=== PATIENT | female | born 1935 | race Caucasian/White ===

== ENCOUNTER 2021-07-04 18:17 | Inpatient (IN) | payer MEDICARE, BC ==
[~2021-07-04] VITALS: Ht 167.6 cm; Wt 80.7 kg
[2021-07-04 19:46] LABS: ABSOLUTE LYMPHOCYTES 0.8 thou/uL (0.8-5.3); ABSOLUTE MONOCYTES 0.2 thou/uL (0.0-1.2); BASOPHILS 0.5 %; EOSINOPHILS 0.4 %; HEMATOCRIT 34.7 % (37.0-47.0); HEMOGLOBIN 11.6 gm/dL (12.0-15.0); LYMPHOCYTES 15.7 %; MCH 29.6 pg (26.0-34.0); MCHC 33.4 g/dL (28.0-37.0); MCV 88.6 fL (80.0-100.0); MONOCYTES 3.8 %; NUCLEATED RBCS 0 /100WBC; PLATELET COUNT* 117 thou/uL (150-400); POLYS 79.6 %; RBC 3.91 mil/uL (4.20-5.00); RDW-CV 14.2 % (10.5-14.5)
[2021-07-04 19:52] LABS: INFLUENZA A ANTIGEN Negative (Negative); INFLUENZA B ANTIGEN Negative (Negative)
[2021-07-04 19:59] LABS: CALCIUM 7.8 mg/dL (8.5-10.1); POTASSIUM 3.5 mmol/L (3.5-5.1)
[2021-07-04 20:02] LABS: ALBUMIN 2.7 g/dL (3.4-5.0); TOTAL BILIRUBIN 0.3 mg/dL (<0.1-1.0)
[2021-07-04] MEDS ORDERED: LEVEMIR100 UNIT/1 SUBQ (21:03)
[2021-07-04] MEDS ORDERED: KAPSPARGO SPRIN25 MG PO (21:03)
[2021-07-04] MEDS ORDERED: ASA81BEC PO (21:04)
[2021-07-04] MEDS ORDERED: BUMETANIDE 1 MG1 M1 PO (21:04)
[2021-07-04] MEDS ORDERED: LEVO-T100 MCG PO (21:04)
[2021-07-04 22:31] VITALS: BP 166/77
[2021-07-04 22:53] LABS: URINE BILIRUBIN NEGATIVE (Negative); URINE BLOOD 3+ (Negative); URINE CLARITY CLEAR; URINE COLOR YELLOW; URINE GLUCOSE-RANDOM NEGATIVE (Negative); URINE KETONES NEGATIVE (Negative); URINE LEUKOCYTES-REFLEX NEGATIVE (Negative); URINE NITRITE-REFLEX NEGATIVE (Negative); URINE PROTEIN 1+ (Negative); URINE UROBILINOGEN 0.2 E.U./dl (0.2-1.0)
[2021-07-04 23:06] LABS: BACTERIA-REFLEX 1-9 Few /HPF (None Seen); CASTS None Seen /LPF (None Seen); CRYSTALS None Seen /LPF (None Seen); MUCUS 0-3 Light strn/LPF (None Seen); SQUAMOUS 4-10 Moderate /LPF (0-3); URINE RBC 3-10 Few /HPF (0-2); URINE WBC-REFLEX 0-5 Rare /HPF (0-5)
[2021-07-05] VITALS (8 sets, daily range): BP systolic 142–181; BP diastolic 69–76
--- NOTE | 2021-07-05 08:50 | EKG ---
[place] [address] ELECTROCARDIOGRAM REPORT Name: MARK KALEE MALDONADO Room: [place] [address] ADM IN [facility]#: [id number] Admission: 07/04/21 Attend Phys: Davis Chung, Discharge: Date of : 39 Date of Service: 07/04/21 1845 Report #: [id number] THIS REPORT FOR: //name// [facility] ED Test Date: 2021-07-04 Test Time: 18:45:42 Pat Name: KALEE MALDONADO Department: Room: [facility] Gender: F Legal Operations Manager: MENDOZA : 1935 Requested By: Salvador Vega Order Number: [id number] MD: Erwin Peguero Measurements Intervals [place] Rate: 80 P: NC: 228 QRS: -51 QRSD: 115 T: 80 QT: 425 QTc: 491 Interpretive Statements A-V dual-paced rhythm with some inhibition No further analysis attempted due to paced rhythm No previous ECG available for comparison Electronically Signed On 07-05-2021 8:50:05 CANE PILER by Erwin Peguero [email or web address] <ELECTRONICALLY SIGNED> By: Erwin Peguero MD, [facility] 07/05/21 0850 1845 1845 Erwin Peguero MD, [facility] /EPI
[2021-07-05 14:24] LABS: BE -5.4 mmol/L (-2 to +3); PCO2 41.4 mmHg (35.0-45.0); pH 7.312 (7.340-7.450)
[2021-07-05 14:29] LABS: HEMATOCRIT 38.6 % (37.0-47.0); HEMOGLOBIN 12.9 gm/dL (12.0-15.0); MCHC 33.5 g/dL (28.0-37.0); MCV 89.3 fL (80.0-100.0); MPV 8.4 fl. (7.2-11.1); NUCLEATED RBCS 0 /100WBC; PLATELET COUNT* 163 thou/uL (150-400); RBC 4.32 mil/uL (4.20-5.00); RDW-CV 14.5 % (10.5-14.5); WBC 5.1 thou/uL (4.0-11.0)
[2021-07-05 14:29] LABS: PO2 55.3 mmHg (75.0-100.0)
[2021-07-05 14:42] LABS: PROTIME 10.5 Seconds (9.20-11.50)
[2021-07-05 14:54] LABS: ABSOLUTE LYMPHOCYTES 0.7 thou/uL (0.8-5.3); ABSOLUTE MONOCYTES 0.2 thou/uL (0.0-1.2); ABSOLUTE NEUTROPHILS 4.3 thou/uL (1.6-8.1); PLATELET ESTIMATE ADEQUATE
[2021-07-05 14:59] LABS: ALBUMIN 2.5 g/dL (3.4-5.0); CALCIUM 7.6 mg/dL (8.5-10.1); CREATININE 2.9 mg/dL (0.6-1.3); MAGNESIUM 1.7 mg/dL (1.8-2.4); PHOSPHORUS* 5.4 mg/dL (2.5-4.9); POTASSIUM 3.6 mmol/L (3.5-5.1); TOTAL BILIRUBIN 0.3 mg/dL (<0.1-1.0); TOTAL PROTEIN 7.1 g/dL (6.4-8.2)
[2021-07-05 15:35] LABS: ESR (SEDRATE) 50 mm/hr (0-30)
[2021-07-05 20:23] LABS: URINE CHLORIDE-RANDOM* 25 mmol/L; URINE POTASSIUM-RANDOM 27.7 mmol/L
[2021-07-05 20:53] LABS: BE -3.6 mmol/L (-2 to +3); PCO2 37.8 mmHg (35.0-45.0); PO2 77.7 mmHg (75.0-100.0); pH 7.367 (7.340-7.450)
[2021-07-06] VITALS (20 sets, daily range): BP systolic 127–173; BP diastolic 50–81
[2021-07-06 04:00] LABS: HEMATOCRIT 35.2 % (37.0-47.0); HEMOGLOBIN 11.8 gm/dL (12.0-15.0); MCH 29.5 pg (26.0-34.0); MCHC 33.4 g/dL (28.0-37.0); MCV 88.2 fL (80.0-100.0); MPV 8.2 fl. (7.2-11.1); RBC 3.99 mil/uL (4.20-5.00); RDW-CV 14.4 % (10.5-14.5); WBC 5.2 thou/uL (4.0-11.0)
[2021-07-06 04:14] LABS: CALCIUM 7.8 mg/dL (8.5-10.1); CREATININE 2.5 mg/dL (0.6-1.3); POTASSIUM 3.6 mmol/L (3.5-5.1)
[2021-07-06] MEDS ORDERED: GABAPENTIN 100100 MG PO (05:02)
--- NOTE | 2021-07-06 12:05 | 2DMMODE ---
[place] [address] 2 D/M-MODE ECHOCARDIOGRAM Name: KALEE BARAHONA Room: 003[facility] IN [facility]#: [id number] Admission: 07/04/21 Attend Phys: Davis Chung, Discharge: Date of : 39 Date of Service: 07/06/21 1204 Report #: [id number] THIS REPORT FOR: cc: Chantale Castillo MD, Pamela MD Liston, Michael J. MD [facility] ~ APPROVED REPORT Study performed: 07/06/2021 09:32:40 EXAM: Comprehensive 2D, Doppler, and color-flow Echocardiogram Patient Location: In-Patient Room #: 003 Status: routine BSA: 1.89 HR: 89 bpm BP: 167/81 mmHg Rhythm: NSR Other Information Study Quality: Good Indications Congestive Heart Failure 2D Dimensions IVSd: 13.08 (7-11mm) LVOT Diam: 18.97 (18-24mm) LVDd: 41.01 mm PWd: 12.33 (7-11mm) Ascending Ao: 28.38 (22-36mm) LVDs: 27.44 (25-40mm) Aortic Root: 21.95 mm Volumes Left Atrial Volume (Systole) LA ESV Index: 27.50 mL/m2 Aortic Valve AoV Peak Anthony.: 1.77 m/s AO Peak Gr.: 12.53 mmHg LVOT Max P.41 mmHg AO Mean Gr.: 6.18 mmHg LVOT Mean P.15 mmHg LVOT Max V: 0.78 m/s AO V2 VTI: 35.52 cm LVOT Mean V: 0.49 m/s ETELVINA (VTI): 1.31 cm2 LVOT V1 VTI: 16.47 [place] [address] 2 D/M-MODE ECHOCARDIOGRAM Name: KALEE BARAHONA Room: [address] IN ..#: [id number] Admission: 07/04/21 Attend Phys: Davis Chung, Discharge: Date of : 39 Date of Service: 07/06/21 1204 Report #: [id number] Mitral Valve E/A Ratio: 1.33 MV Decel. Time: 187.51 ms MV E Max Anthony.: 1.16 m/s MV PHT: 54.38 ms MVA (PHT): 4.05 cm2 TDI E/Lateral E': 11.60 E/Medial E': 12.89 Medial E' Anthony.: 0.09 m/s Lateral E' Anthony.: 0.10 m/s Pulmonary Valve PV Peak Anthony.: 0.88 m/s PV Peak Gr.: 3.10 mmHg Tricuspid Valve RAP Estimate: 5.00 mmHg TR Peak Gr.: 30.25 mmHg RVSP: 35.00 mmHg PA Pressure: 35.00 mmHg Left Ventricle The left ventricle is normal size. There is normal LV segmental wall motion. Mild concentric left ventricular hypertrophy. Left ventricular systolic function is normal. LVEF is 60-65%. Transmitral Doppler flow pattern suggests restrictive physiology. Right Ventricle The right ventricle is normal size. The right ventricular systolic function is normal. Pacemaker lead is present in the right ventricle. Atria The left atrium size is normal. The right atrium size is normal. Aortic Valve Prosthetic aortic valve visualized. No aortic regurgitation is present. There is no aortic valvular stenosis. Mitral Valve There is mitral annular calcification. Mild mitral regurgitation. No evidence of mitral valve stenosis. Tricuspid Valve The tricuspid valve is normal in structure. Trace tricuspid regurgitation. [place] [address] 2 D/M-MODE ECHOCARDIOGRAM Name: KALEE BARAHONA Room: [address] IN [facility]#: [id number] Admission: 07/04/21 Attend Phys: Davis Chung, Discharge: Date of : 39 Date of Service: 07/06/21 1204 Report #: [id number] Pulmonic Valve The pulmonary valve is normal in structure. Trace pulmonic regurgitation. Great Vessels The aortic root is normal in size. IVC is normal in size and collapses >50% with inspiration. Pericardium There is no pericardial effusion. <Conclusion> The left ventricle is normal size. Mild concentric left ventricular hypertrophy. Left ventricular systolic function is normal. LVEF is 60-65%. Transmitral Doppler flow pattern suggests restrictive physiology. Pacemaker lead is present in the right ventricle. Prosthetic aortic valve visualized. No aortic regurgitation is present. There is no aortic valvular stenosis. There is mitral annular calcification. Mild mitral regurgitation. Trace tricuspid regurgitation. Mild pulmonary hypertension. IVC is normal in size and collapses >50% with inspiration. <ELECTRONICALLY SIGNED> By: Cash Rae MD, FACC 07/06/21 1204 03 03 Cash Rae MD, FACC /INF
[2021-07-06 13:43] LABS: URINE BILIRUBIN NEGATIVE (Negative); URINE BLOOD TRACE (Negative); URINE CLARITY CLEAR; URINE COLOR YELLOW; URINE GLUCOSE-RANDOM NEGATIVE (Negative); URINE KETONES NEGATIVE (Negative); URINE LEUKOCYTES NEGATIVE (Negative); URINE NITRITE NEGATIVE (Negative); URINE PROTEIN TRACE (Negative); URINE UROBILINOGEN 0.2 E.U./dl (0.2-1.0)
[2021-07-06] MEDS ORDERED: LASIX 40 MG TAB40 MG PO (15:26)
[2021-07-06] MEDS ORDERED: MELATONIN10 M3 PO (15:27)
[2021-07-06] MEDS ORDERED: MINERAL OIL HEAV1 ML PO (15:29)
[2021-07-06] MEDS ORDERED: VITAMIN D3 COM1 EACH PO (15:30)
[2021-07-06] MEDS ORDERED: ZINC30 MG PO (15:37)
--- NOTE | 2021-07-06 17:29 | CON ---
[address] [address] CONSULTATION Name: MARK MALDONADOKALEE Loan Room: [address] IN M.R.#: [id number] Admission: 07/04/21 Attend Phys: Davis Chung MD Discharge: Date of : 37 Report #: [id number] THIS REPORT FOR: cc: Chantale Castillo MD, Pamela MD Pervez,Tomi SNOW ~ DATE OF CONSULTATION: 07/05/2021 REQUESTING PHYSICIAN: Consult has been requested by Dr. Neal. INDICATION FOR CONSULTATION: Acute hypoxemic respiratory failure secondary to COVID-19. HISTORY OF PRESENT ILLNESS: This is an 85-year-old female with past medical history as mentioned below. This does include a history of diabetes as well as hypertension. The patient is also status post CABG. I am not aware of the patient's baseline creatinine. The patient is reported to have no history of smoking. The patient is unvaccinated for COVID-19, has now presented with acute onset shortness of breath as well as a cough. The patient has not had much sputum production. On initial presentation, the patient was saturating only 70% on room air. Oxygen has been gradually escalated with 100% FiO2 and 50 liters of flow. The patient till recently was maintaining O2 saturation; however, the patient herself removed heated high-flow nasal cannula. This was replaced by the staff. Her O2 saturation could then not be increased above 85%. The patient also is tachypneic with respiratory rate up to 30. The patient has therefore just been placed on a BiPAP with 100% FiO2. She still is tachypneic with respiratory rate around 29-30, but her O2 saturation is coming up to the high 90s. She is in acute renal failure. Creatinine is 2.9-3. Blood pressure, however, is elevated. There is not much swelling of lower extremities. There is no calf pain. The patient does appear to be anxious. She answers to the negative for 12 questions for review of systems except as above; however, the patient's ability to answer questions is limited. She has significant hyperglycemia. Blood glucoses are in the 300s. PAST MEDICAL HISTORY: Diabetes, hypertension, status post CABG, status post pacemaker placement. I do not have a measure of her left ventricular ejection fraction available. I do not have her baseline creatinine available. SOCIAL HISTORY: There is no known history of smoking, ethanol abuse, or drug abuse. CURRENT MEDICATIONS: List in [facility] [place] [address] CONSULTATION Name: KALEE BARAHONA Room: [address] IN [facility]#: [id number] Admission: 07/04/21 Attend Phys: Davis Chung MD Discharge: Date of : 37 Report #: [id number] HOME MEDICATIONS: List in [facility] reviewed. ALLERGIES: SULFONAMIDE ANTIBIOTICS ARE MENTIONED ALLERGIES. SHE IS ALSO REPORTED TO HAVE HAD EITHER AN ADVERSE REACTION OR ALLERGY TO FENTANYL. FAMILY HISTORY: No pertinent family history known at this time. IMMUNIZATION HISTORY: She has not been immunized for COVID-19. PHYSICAL EXAMINATION: GENERAL: She is anxious. She is on 100% FiO2 with a BiPAP of 12/5. VITAL SIGNS: She has good tidal volumes. O2 saturation has come up to the high 90s. She is still tachypneic with respiratory rate around 30. Her pulse rate is 88. She is afebrile with a temperature of 36.4. HEENT: Head is normocephalic and atraumatic. BiPAP is in place. NECK: Does not show raised JVP asymmetry, mass or lymph nodes. CHEST: Symmetrical expansion on inspection and palpation. On auscultation, breath sounds are bilaterally equal. There are scattered rales bilaterally, more at bases. HEART: Regular. There is no murmur. ABDOMEN: Soft and nontender. EXTREMITIES: Lower extremities show minimal edema only. There is no calf tenderness. SKIN: Dry and intact. NEUROLOGIC: Moves all extremities bilaterally equally and spontaneously with no focal deficit identified. LABORATORY DATA: The patient's lab work as well as a chest x-ray performed yesterday is in [facility] and this is reviewed. Arterial blood gas also in [facility] reviewed. ASSESSMENT AND PLAN: 1. Acute hypoxemic respiratory failure secondary to COVID-19. Unfortunately, at first glance, it appears that the patient has a poor prognosis. I am concerned that she may decline to the point that she required endotracheal intubation and mechanical ventilation. At this time, she is a fully awake and she does appear to be stabilizing on 100% BiPAP. Therefore, we will cautiously watch for now. She does need to be admitted to the ICU. I did discuss with her regarding possibility of requiring endotracheal intubation. The patient did state that if it becomes necessary, she will want the same. 2. COVID-19, considering the severity of her respiratory failure, we will increase dexamethasone to total of 20 mg daily. Agree with Actemra. There is limited data regarding remdesivir and acute renal failure for now, I decided to continue. [address] [address] CONSULTATION Name: KALEE BARAHONA Room: 003-[facility] IN [facility]#: [id number] Admission: 07/04/21 Attend Phys: Davis Chung MD Discharge: Date of : 37 Report #: [id number] 3. Pulmonary infiltrates. Agree with covering with broad-spectrum antibiotics for secondary bacterial infections. We will broaden antibiotic coverage further. We will also do a nasal swab for MRSA as well as a sputum culture if possible. 4. Acute renal failure. We will consult Nephrology. We will do a renal ultrasound. If the patient remains significantly hypoxemic, then I will be inclined to diurese her while understanding that this may worsen her renal function in order to be able to try to avoid endotracheally intubating her. We will also consult the Nephrology Service, we will also consult Dr. Montero. 5. Uncontrolled diabetes with the increase in steroid dose. I would expect glucoses to rise even further insulin sliding scale increased and may need long-acting insulin as well. 6. Evaluation for thromboembolic phenomena. We will also do venous Dopplers. 7. Deep venous thrombosis prophylaxis, subcutaneous heparin. 8. Gastrointestinal prophylaxis, Protonix. 9. Clostridium difficile prophylaxis. If able to take orally, we will also start her on Lactinex. The patient is critically ill at this time. Total time spent providing critical care to this patient today exceeds 45 minutes. <ELECTRONICALLY SIGNED> By: Tomi Perez MD 07/06/21 1729 1709 MD josé manuel [place]
[2021-07-06 17:43] LABS: CALCIUM 7.5 mg/dL (8.5-10.1); CREATININE 2.7 mg/dL (0.6-1.3); MAGNESIUM 2.1 mg/dL (1.8-2.4); POTASSIUM 4.2 mmol/L (3.5-5.1)
[2021-07-07] VITALS (17 sets, daily range): BP systolic 102–135; BP diastolic 46–65
[2021-07-07 02:06] LABS: GLYCOHEMOGLOBIN (HGB A1C) 9.1 % (4.8-5.6)
[2021-07-07 03:28] LABS: ABSOLUTE LYMPHOCYTES 0.6 thou/uL (0.8-5.3); ABSOLUTE MONOCYTES 0.4 thou/uL (0.0-1.2); ABSOLUTE NEUTROPHILS 6.8 thou/uL (1.6-8.1); BASOPHILS 0.2 %; HEMATOCRIT 34.8 % (37.0-47.0); HEMOGLOBIN 11.5 gm/dL (12.0-15.0); LYMPHOCYTES 7.2 %; MCH 29.5 pg (26.0-34.0); MCHC 33.1 g/dL (28.0-37.0); MCV 89.1 fL (80.0-100.0); MONOCYTES 5.4 %; MPV 7.7 fl. (7.2-11.1); NUCLEATED RBCS 0 /100WBC; PLATELET COUNT* 229 thou/uL (150-400); POLYS 87.2 %; RBC 3.91 mil/uL (4.20-5.00); RDW-CV 14.5 % (10.5-14.5); WBC 7.9 thou/uL (4.0-11.0)
[2021-07-07 03:45] LABS: ALBUMIN 2.5 g/dL (3.4-5.0); CALCIUM 7.6 mg/dL (8.5-10.1); CREATININE 2.8 mg/dL (0.6-1.3); MAGNESIUM 2.3 mg/dL (1.8-2.4); POTASSIUM 4.2 mmol/L (3.5-5.1); TOTAL BILIRUBIN 0.3 mg/dL (<0.1-1.0); TOTAL PROTEIN 6.3 g/dL (6.4-8.2)
[2021-07-07 16:06] LABS: ABSOLUTE BASOPHILS 0.1 thou/uL (0.0-0.2); ABSOLUTE LYMPHOCYTES 0.6 thou/uL (0.8-5.3); ABSOLUTE MONOCYTES 0.5 thou/uL (0.0-1.2); ABSOLUTE NEUTROPHILS 8.7 thou/uL (1.6-8.1); BASOPHILS 0.5 %; HEMATOCRIT 33.5 % (37.0-47.0); HEMOGLOBIN 11.2 gm/dL (12.0-15.0); LYMPHOCYTES 6.4 %; MCH 29.6 pg (26.0-34.0); MCHC 33.4 g/dL (28.0-37.0); MCV 88.8 fL (80.0-100.0); MONOCYTES 5.4 %; MPV 7.6 fl. (7.2-11.1); NUCLEATED RBCS 0 /100WBC; PLATELET COUNT* 230 thou/uL (150-400); POLYS 87.7 %; RBC 3.78 mil/uL (4.20-5.00); RDW-CV 14.6 % (10.5-14.5)
[2021-07-07 16:16] LABS: CALCIUM 7.8 mg/dL (8.5-10.1); CREATININE 2.8 mg/dL (0.6-1.3); MAGNESIUM 2.2 mg/dL (1.8-2.4); POTASSIUM 4.1 mmol/L (3.5-5.1)
[2021-07-08] VITALS (21 sets, daily range): BP systolic 110–157; BP diastolic 44–121
[2021-07-08 03:39] LABS: ABSOLUTE BASOPHILS 0.1 thou/uL (0.0-0.2); ABSOLUTE LYMPHOCYTES 0.5 thou/uL (0.8-5.3); ABSOLUTE MONOCYTES 0.4 thou/uL (0.0-1.2); ABSOLUTE NEUTROPHILS 9.3 thou/uL (1.6-8.1); BASOPHILS 0.5 %; HEMATOCRIT 36.5 % (37.0-47.0); HEMOGLOBIN 11.7 gm/dL (12.0-15.0); LYMPHOCYTES 5.2 %; MCH 29.6 pg (26.0-34.0); MCV 92.5 fL (80.0-100.0); MONOCYTES 4.1 %; MPV 7.7 fl. (7.2-11.1); NUCLEATED RBCS 0 /100WBC; PLATELET COUNT* 225 thou/uL (150-400); POLYS 90.2 %; RBC 3.95 mil/uL (4.20-5.00); RDW-CV 15.1 % (10.5-14.5); WBC 10.3 thou/uL (4.0-11.0)
[2021-07-08 04:04] LABS: ALBUMIN 2.4 g/dL (3.4-5.0); CALCIUM 7.6 mg/dL (8.5-10.1); CREATININE 2.7 mg/dL (0.6-1.3); MAGNESIUM 2.2 mg/dL (1.8-2.4); POTASSIUM 4.3 mmol/L (3.5-5.1); TOTAL BILIRUBIN 0.4 mg/dL (<0.1-1.0); TOTAL PROTEIN 6.2 g/dL (6.4-8.2)
[2021-07-08 04:16] LABS: ALBUMIN 2.5 g/dL (3.4-5.0); CALCIUM 7.2 mg/dL (8.5-10.1); CREATININE 2.8 mg/dL (0.6-1.3); PHOSPHORUS* 5.1 mg/dL (2.5-4.9); POTASSIUM 4.5 mmol/L (3.5-5.1)
[2021-07-09] VITALS (22 sets, daily range): BP systolic 112–176; BP diastolic 53–113
[2021-07-09 07:04] LABS: HEMATOCRIT 36.9 % (37.0-47.0); HEMOGLOBIN 11.7 gm/dL (12.0-15.0); MCH 28.9 pg (26.0-34.0); MCHC 31.8 g/dL (28.0-37.0); MPV 7.5 fl. (7.2-11.1); RBC 4.05 mil/uL (4.20-5.00); RDW-CV 15.1 % (10.5-14.5)
[2021-07-09 07:13] LABS: CALCIUM 7.9 mg/dL (8.5-10.1); CREATININE 2.8 mg/dL (0.6-1.3); POTASSIUM 4.3 mmol/L (3.5-5.1)
[2021-07-10] VITALS (14 sets, daily range): BP systolic 107–162; BP diastolic 55–96
[2021-07-10 03:44] LABS: HEMATOCRIT 34.3 % (37.0-47.0); HEMOGLOBIN 11.3 gm/dL (12.0-15.0); MCHC 32.9 g/dL (28.0-37.0); MCV 88.1 fL (80.0-100.0); MPV 7.3 fl. (7.2-11.1); NUCLEATED RBCS 0 /100WBC; PLATELET COUNT* 258 thou/uL (150-400); RBC 3.89 mil/uL (4.20-5.00); RDW-CV 15.1 % (10.5-14.5); WBC 11.7 thou/uL (4.0-11.0)
[2021-07-10 04:05] LABS: ALBUMIN 2.6 g/dL (3.4-5.0); CALCIUM 7.4 mg/dL (8.5-10.1); CREATININE 2.8 mg/dL (0.6-1.3); MAGNESIUM 2.1 mg/dL (1.8-2.4); PHOSPHORUS* 4.8 mg/dL (2.5-4.9); POTASSIUM 4.3 mmol/L (3.5-5.1); TOTAL BILIRUBIN 0.4 mg/dL (<0.1-1.0); TOTAL PROTEIN 6.3 g/dL (6.4-8.2)
[2021-07-10 06:22] LABS: ABSOLUTE LYMPHOCYTES 0.1 thou/uL (0.8-5.3); ABSOLUTE MONOCYTES 0.2 thou/uL (0.0-1.2); ABSOLUTE NEUTROPHILS 11.3 thou/uL (1.6-8.1)
[2021-07-10 06:23] LABS: PLATELET ESTIMATE ADEQUATE
--- NOTE | 2021-07-10 09:49 | CON ---
[address] [address] CONSULTATION Name: JOSEPHAmos MALDONADOKALEE Loan Room: [address] IN M.R.#: [id number] Admission: 07/04/21 Attend Phys: Davis Chung MD Discharge: Date of : 39 Report #: [id number] THIS REPORT FOR: cc: Chantale Castillo MD,Ward Flores MD, DO ~ cc: Davis Chung MD, Chantale Castillo MD DATE OF CONSULTATION: 07/07/2021 REFERRING DOCTOR: Davis Chung MD. REASON FOR CONSULTATION: GI bleeding. ASSESSMENT AND PLAN: 1. Melena of uncertain etiology. 2. Acute hypoxemic respiratory failure secondary to COVID pneumonia, requiring high-flow oxygen. 3. Acute renal failure, stable. 4. History of coronary artery disease with previous bypass surgery and aortic valve replacement. 5. Mild anemia, which is multifactorial. RECOMMENDATIONS: 1. I agree with the patient being on IV Protonix at this time. 2. Continue with heart healthy diet at this time. 3. We will hold off on upper endoscopy until okayed by Pulmonary. The patient is currently on high flow oxygen, which makes sedation difficult. I would defer not to have her intubated, so that we can watch and wait for now. However, if she should develop any evidence or overt hematemesis or required blood transfusions due to acute anemia from GI bleeding, we will need to proceed with upper endoscopy. 4. We will also request records from Dr. Castillo and Dr. Jackson's office on Saturday regarding any and all previous endoscopies in the past as well as pathology results from the same. 5. I have discussed these plans with the patient as well as her ICU nurse, Jose Guadalupe. 6. We will continue to follow while she is in the hospital. HISTORY OF PRESENT ILLNESS: The patient is a very pleasant 85-year-old white female who is currently hospitalized since 07/04 with respiratory failure related to COVID pneumonia. She is currently being treated for the same and with associated renal failure, which is stable. She is currently on high flow oxygen and on treatment for her COVID pneumonia. We were asked to see her because she had [place] [address] CONSULTATION Name: KALEE BARAHONA Room: [address]#: [id number] Admission: 07/04/21 Attend Phys: Davis Chung MD Discharge: Date of : 37 Report #: [id number] The patient is awake and alert and on high flow oxygen. She denies any complaints of any dysphagia, odynophagia, postprandial pain or any problem with her bowels or bowel frequency. She denies any bleeding. She has undergone endoscopic studies of her lower GI tract in the past by Dr. Jackson and thinks that the last 1 was done within the last several years. She was told that she just repeat a colonoscopy as needed. She does not take any nonsteroidals at home. She has no history of any problems related to her upper or lower GI tract in the past. ALLERGIES: FENTANYL AND SULFA. CURRENT MEDICATIONS: Include insulin, pantoprazole, dexamethasone, cefepime, insulin, albuterol, metoprolol, hydralazine, ondansetron and linezolid. She is also on remdesivir and azithromycin. PAST MEDICAL AND SURGICAL HISTORY: Remarkable for coronary artery disease, previous bypass surgery in 2019. She also had aortic valve replacement. She has underlying hypertension and diabetes. She has had previous pacemaker placed in the past. SOCIAL HISTORY: She does not smoke or drink. FAMILY HISTORY: Negative. PHYSICAL EXAMINATION: GENERAL: Pleasant 85-year-old white female, who is awake and alert. CARDIOPULMONARY: Revealed a regular rate and rhythm. LUNGS: Clear with some diminished breath sounds. ABDOMEN: Soft and nontender. No rebound or guarding noted. LABORATORY TESTS: From today revealed a white count of 10.0, hemoglobin 11.2, platelet count 230,000, MCV is 88.8 and RDW is 14.6. On admission, her white count was 5.0, hemoglobin 11.6, platelet count 117,000 with similar indices. Her sodium is 139, potassium 4.1, chloride is 102, bicarb is 27, his BUN is 98, creatinine is 2.8 with a GFR of only 16. By comparison on admission, her BUN and creatinine were 75 and 3.0 respectively. Liver tests on admission revealed a bilirubin of 0.3, alkaline phosphatase 108, AST is 64 and ALT of 33 and albumin of 2.7. DISCUSSION: At the present time, the patient had some dark stools, which are compatible with melena. Her hemoglobin has remained stable as well as her vital signs. We will wait for Pulmonary to gives the okay for her to proceed with an upper endoscopy and in the interim we will request records early next week for [address] [address] CONSULTATION Name: MARK MALDONADOKALEE Loan Room: 003-[facility] IN .R.#: [id number] Admission: 07/04/21 Attend Phys: Davis Chung MD Discharge: Date of : 39 Report #: [id number] her PCP and from her primary elementary assistant teacher. I discussed plans with the patient and she is agreeable to same. <ELECTRONICALLY SIGNED> By: Ward Sue DO 07/10/21 0949 0656 [id number] Sue DO /nt
[2021-07-11] VITALS (18 sets, daily range): BP systolic 101–149; BP diastolic 60–90
[2021-07-11 03:42] LABS: ABSOLUTE LYMPHOCYTES 0.3 thou/uL (0.8-5.3); ABSOLUTE MONOCYTES 0.4 thou/uL (0.0-1.2); ABSOLUTE NEUTROPHILS 12.9 thou/uL (1.6-8.1); BASOPHILS 0.3 %; HEMATOCRIT 34.6 % (37.0-47.0); HEMOGLOBIN 11.3 gm/dL (12.0-15.0); LYMPHOCYTES 2.5 %; MCHC 32.8 g/dL (28.0-37.0); MCV 88.5 fL (80.0-100.0); MONOCYTES 2.6 %; MPV 7.5 fl. (7.2-11.1); NUCLEATED RBCS 0 /100WBC; PLATELET COUNT* 274 thou/uL (150-400); POLYS 94.6 %; RBC 3.91 mil/uL (4.20-5.00); WBC 13.6 thou/uL (4.0-11.0)
[2021-07-11 03:57] LABS: CALCIUM 7.8 mg/dL (8.5-10.1); CREATININE 3.1 mg/dL (0.6-1.3); MAGNESIUM 2.2 mg/dL (1.8-2.4); POTASSIUM 4.4 mmol/L (3.5-5.1)
[2021-07-11 20:04] LABS: URINE BILIRUBIN NEGATIVE (Negative); URINE BLOOD 3+ (Negative); URINE CLARITY CLEAR; URINE COLOR YELLOW; URINE GLUCOSE-RANDOM NEGATIVE (Negative); URINE KETONES NEGATIVE (Negative); URINE LEUKOCYTES 1+ (Negative); URINE NITRITE NEGATIVE (Negative); URINE PROTEIN 1+ (Negative); URINE UROBILINOGEN 0.2 E.U./dl (0.2-1.0)
[2021-07-11 20:21] LABS: SQUAMOUS 4-10 Moderate /LPF (0-3); URINE WBC 6-15 Few /HPF (0-5)
[2021-07-11 20:22] LABS: BACTERIA 1-9 Few /HPF (None Seen); CASTS None Seen /LPF (None Seen); CRYSTALS None Seen /LPF (None Seen); YEAST Present (None Seen)
[2021-07-12] VITALS (12 sets, daily range): BP systolic 100–141; BP diastolic 45–90
[2021-07-12 02:29] LABS: CALCIUM 7.8 mg/dL (8.5-10.1); CREATININE 3.2 mg/dL (0.6-1.3); POTASSIUM 4.7 mmol/L (3.5-5.1)
[2021-07-13] VITALS (22 sets, daily range): BP systolic 93–153; BP diastolic 44–87
[2021-07-13 03:44] LABS: ABSOLUTE BASOPHILS 0.1 thou/uL (0.0-0.2); ABSOLUTE LYMPHOCYTES 0.2 thou/uL (0.8-5.3); ABSOLUTE MONOCYTES 0.2 thou/uL (0.0-1.2); ABSOLUTE NEUTROPHILS 15.3 thou/uL (1.6-8.1); BASOPHILS 0.8 %; HEMATOCRIT 33.2 % (37.0-47.0); HEMOGLOBIN 10.7 gm/dL (12.0-15.0); LYMPHOCYTES 1.4 %; MCHC 32.2 g/dL (28.0-37.0); MONOCYTES 1.3 %; MPV 7.4 fl. (7.2-11.1); NUCLEATED RBCS 0 /100WBC; POLYS 96.5 %; RBC 3.69 mil/uL (4.20-5.00); RDW-CV 15.2 % (10.5-14.5); WBC 15.9 thou/uL (4.0-11.0)
[2021-07-13 03:56] LABS: PLATELET COUNT* 195 thou/uL (150-400)
[2021-07-13 04:02] LABS: ALBUMIN 2.6 g/dL (3.4-5.0); CALCIUM 7.7 mg/dL (8.5-10.1); CREATININE 3.3 mg/dL (0.6-1.3); MAGNESIUM 2.3 mg/dL (1.8-2.4); POTASSIUM 4.9 mmol/L (3.5-5.1); TOTAL BILIRUBIN 0.4 mg/dL (<0.1-1.0); TOTAL PROTEIN 5.8 g/dL (6.4-8.2)
[2021-07-14] VITALS (63 sets, daily range): BP systolic 80–160; BP diastolic 19–96
[2021-07-14 05:41] LABS: ABSOLUTE BASOPHILS 0.1 thou/uL (0.0-0.2); ABSOLUTE LYMPHOCYTES 0.3 thou/uL (0.8-5.3); ABSOLUTE MONOCYTES 0.1 thou/uL (0.0-1.2); ABSOLUTE NEUTROPHILS 22.1 thou/uL (1.6-8.1); BASOPHILS 0.5 %; HEMATOCRIT 33.7 % (37.0-47.0); HEMOGLOBIN 10.7 gm/dL (12.0-15.0); LYMPHOCYTES 1.3 %; MCH 29.4 pg (26.0-34.0); MCHC 31.7 g/dL (28.0-37.0); MCV 92.8 fL (80.0-100.0); MONOCYTES 0.6 %; MPV 7.6 fl. (7.2-11.1); NUCLEATED RBCS 0 /100WBC; PLATELET COUNT* 212 thou/uL (150-400); POLYS 97.6 %; RBC 3.63 mil/uL (4.20-5.00); WBC 22.6 thou/uL (4.0-11.0)
[2021-07-14 06:03] LABS: ALBUMIN 2.7 g/dL (3.4-5.0); CALCIUM 7.9 mg/dL (8.5-10.1); CREATININE 3.9 mg/dL (0.6-1.3); MAGNESIUM 2.3 mg/dL (1.8-2.4); POTASSIUM 4.9 mmol/L (3.5-5.1); TOTAL BILIRUBIN 0.4 mg/dL (<0.1-1.0); TOTAL PROTEIN 6.2 g/dL (6.4-8.2)
[2021-07-14 10:52] LABS: BE -13.3 mmol/L (-2 to +3); PO2 110.8 mmHg (75.0-100.0)
[2021-07-14 11:00] LABS: pH 7.144 (7.340-7.450)
[2021-07-14 11:55] LABS: URINE BILIRUBIN NEGATIVE (Negative); URINE BLOOD 3+ (Negative); URINE CLARITY SL CLOUDY; URINE COLOR YELLOW; URINE GLUCOSE-RANDOM NEGATIVE (Negative); URINE KETONES TRACE (Negative); URINE LEUKOCYTES 2+ (Negative); URINE NITRITE NEGATIVE (Negative); URINE PROTEIN 2+ (Negative); URINE SPECIFIC GRAVITY 1.025 (1.005-1.030); URINE UROBILINOGEN 0.2 E.U./dl (0.2-1.0)
[2021-07-14 12:09] LABS: BACTERIA >30 Many /HPF (None Seen); SQUAMOUS 4-10 Moderate /LPF (0-3); URINE RBC >20 Many /HPF (0-2)
[2021-07-14 12:10] LABS: AMORPHOUS URATES Many /LPF (None Seen); CASTS None Seen /LPF (None Seen); CRYSTALS None Seen /LPF (None Seen); MUCUS 0-3 Light strn/LPF (None Seen)
[2021-07-14 18:14] LABS: CALCIUM 7.6 mg/dL (8.5-10.1); CREATININE 4.4 mg/dL (0.6-1.3); POTASSIUM 5.1 mmol/L (3.5-5.1)
[2021-07-15] VITALS (35 sets, daily range): BP systolic 113–159; BP diastolic 36–63
[2021-07-15 07:35] LABS: BE -7.2 mmol/L (-2 to +3); PCO2 47.6 mmHg (35.0-45.0)
[2021-07-15 07:43] LABS: PO2 55.9 mmHg (75.0-100.0); pH 7.241 (7.340-7.450)
[2021-07-15 12:20] LABS: ABSOLUTE LYMPHOCYTES 0.1 thou/uL (0.8-5.3); ABSOLUTE MONOCYTES 0.2 thou/uL (0.0-1.2); ABSOLUTE NEUTROPHILS 7.5 thou/uL (1.6-8.1); BASOPHILS 0.2 %; HEMATOCRIT 25.4 % (37.0-47.0); LYMPHOCYTES 1.8 %; MCH 29.8 pg (26.0-34.0); MCHC 33.2 g/dL (28.0-37.0); MCV 89.8 fL (80.0-100.0); MONOCYTES 2.2 %; MPV 8.3 fl. (7.2-11.1); NUCLEATED RBCS 0 /100WBC; POLYS 95.8 %; RBC 2.83 mil/uL (4.20-5.00); RDW-CV 15.4 % (10.5-14.5); WBC 7.8 thou/uL (4.0-11.0)
[2021-07-15 12:23] LABS: HEMOGLOBIN 8.4 gm/dL (12.0-15.0); PLATELET COUNT* 79 thou/uL (150-400)
[2021-07-15 12:37] LABS: ALBUMIN 2.9 g/dL (3.4-5.0); CALCIUM 7.3 mg/dL (8.5-10.1); CREATININE 5.2 mg/dL (0.6-1.3); MAGNESIUM 2.3 mg/dL (1.8-2.4); PHOSPHORUS* 8.5 mg/dL (2.5-4.9); POTASSIUM 4.9 mmol/L (3.5-5.1); TOTAL BILIRUBIN 0.5 mg/dL (<0.1-1.0); TOTAL PROTEIN 5.7 g/dL (6.4-8.2)
[2021-07-16] VITALS (38 sets, daily range): BP systolic 57–145; BP diastolic 35–106
[2021-07-16 05:03] LABS: ALBUMIN 2.6 g/dL (3.4-5.0); CALCIUM 7.2 mg/dL (8.5-10.1); POTASSIUM 4.5 mmol/L (3.5-5.1); TOTAL BILIRUBIN 0.5 mg/dL (<0.1-1.0); TOTAL PROTEIN 5.1 g/dL (6.4-8.2)
[2021-07-16 05:07] LABS: CREATININE 3.9 mg/dL (0.6-1.3)
[2021-07-16 15:32] LABS: BE 0.9 mmol/L (-2 to +3); PCO2 VENOUS 58.7 mmHg (41.0-51.0); PO2 VENOUS 129.4 mmHg (35.0-45.0)
[2021-07-16 15:36] LABS: ABSOLUTE BASOPHILS 0.1 thou/uL (0.0-0.2); ABSOLUTE LYMPHOCYTES 0.1 thou/uL (0.8-5.3); ABSOLUTE MONOCYTES 0.5 thou/uL (0.0-1.2); ABSOLUTE NEUTROPHILS 10.6 thou/uL (1.6-8.1); BASOPHILS 0.9 %; HEMATOCRIT 20.8 % (37.0-47.0); LYMPHOCYTES 0.9 %; MCH 29.5 pg (26.0-34.0); MCHC 33.5 g/dL (28.0-37.0); MCV 88.1 fL (80.0-100.0); MONOCYTES 4.8 %; MPV 7.5 fl. (7.2-11.1); NUCLEATED RBCS 0 /100WBC; PLATELET COUNT* 68 thou/uL (150-400); POLYS 93.4 %; RBC 2.37 mil/uL (4.20-5.00); RDW-CV 14.7 % (10.5-14.5); WBC 11.3 thou/uL (4.0-11.0)
[2021-07-16 15:40] LABS: CALCIUM 7.1 mg/dL (8.5-10.1); CREATININE 2.6 mg/dL (0.6-1.3); POTASSIUM 4.2 mmol/L (3.5-5.1)
[2021-07-16 17:32] LABS: ABSOLUTE LYMPHOCYTES 0.1 thou/uL (0.8-5.3); ABSOLUTE MONOCYTES 0.4 thou/uL (0.0-1.2); ABSOLUTE NEUTROPHILS 11.3 thou/uL (1.6-8.1); BASOPHILS 0.2 %; HEMATOCRIT 21.5 % (37.0-47.0); HEMOGLOBIN 7.1 gm/dL (12.0-15.0); LYMPHOCYTES 1.2 %; MCH 29.4 pg (26.0-34.0); MCHC 33.1 g/dL (28.0-37.0); MCV 88.7 fL (80.0-100.0); MONOCYTES 3.1 %; MPV 8.7 fl. (7.2-11.1); NUCLEATED RBCS 0 /100WBC; PLATELET COUNT* 78 thou/uL (150-400); POLYS 95.5 %; RBC 2.43 mil/uL (4.20-5.00); RDW-CV 14.9 % (10.5-14.5); WBC 11.8 thou/uL (4.0-11.0)
[2021-07-16 22:18] LABS: ABSOLUTE BASOPHILS 0.1 thou/uL (0.0-0.2); ABSOLUTE LYMPHOCYTES 0.1 thou/uL (0.8-5.3); ABSOLUTE MONOCYTES 0.4 thou/uL (0.0-1.2); ABSOLUTE NEUTROPHILS 10.9 thou/uL (1.6-8.1); BASOPHILS 0.5 %; HEMATOCRIT 21.3 % (37.0-47.0); LYMPHOCYTES 1.2 %; MCH 29.4 pg (26.0-34.0); MCHC 32.7 g/dL (28.0-37.0); MCV 89.9 fL (80.0-100.0); MONOCYTES 3.5 %; MPV 8.8 fl. (7.2-11.1); NUCLEATED RBCS 0 /100WBC; PLATELET COUNT* 88 thou/uL (150-400); POLYS 94.8 %; RBC 2.37 mil/uL (4.20-5.00); RDW-CV 15.2 % (10.5-14.5); WBC 11.5 thou/uL (4.0-11.0)
[2021-07-17] VITALS (48 sets, daily range): BP systolic 87–140; BP diastolic 36–64
[2021-07-17 02:06] LABS: HEPATITIS B SURFACE AG Negative (Negative)
[2021-07-17 04:12] LABS: HEMATOCRIT 20.7 % (37.0-47.0); MCHC 33.3 g/dL (28.0-37.0); MCV 90.2 fL (80.0-100.0); MPV 8.5 fl. (7.2-11.1); NUCLEATED RBCS 0 /100WBC; PLATELET COUNT* 77 thou/uL (150-400); RDW-CV 15.3 % (10.5-14.5); WBC 10.4 thou/uL (4.0-11.0)
[2021-07-17 04:27] LABS: ALBUMIN 2.7 g/dL (3.4-5.0); CALCIUM 7.5 mg/dL (8.5-10.1); CREATININE 3.3 mg/dL (0.6-1.3); MAGNESIUM 2.1 mg/dL (1.8-2.4); POTASSIUM 4.4 mmol/L (3.5-5.1); TOTAL BILIRUBIN 0.4 mg/dL (<0.1-1.0); TOTAL PROTEIN 5.2 g/dL (6.4-8.2)
[2021-07-17 07:33] LABS: ABSOLUTE LYMPHOCYTES 0.3 thou/uL (0.8-5.3); ABSOLUTE NEUTROPHILS 10.1 thou/uL (1.6-8.1); HYPOCHROMASIA 3+; MICROCYTES 1+; PLATELET ESTIMATE DECREASED
[2021-07-17 12:08] LABS: ABSOLUTE LYMPHOCYTES 0.2 thou/uL (0.8-5.3); ABSOLUTE MONOCYTES 0.4 thou/uL (0.0-1.2); ABSOLUTE NEUTROPHILS 11.1 thou/uL (1.6-8.1); BASOPHILS 0.1 %; EOSINOPHILS 0.1 %; HEMATOCRIT 26.7 % (37.0-47.0); HEMOGLOBIN 8.9 gm/dL (12.0-15.0); LYMPHOCYTES 1.7 %; MCH 29.8 pg (26.0-34.0); MCHC 33.4 g/dL (28.0-37.0); MCV 89.1 fL (80.0-100.0); MONOCYTES 3.2 %; MPV 8.3 fl. (7.2-11.1); NUCLEATED RBCS 0 /100WBC; PLATELET COUNT* 68 thou/uL (150-400); POLYS 94.9 %; RDW-CV 14.4 % (10.5-14.5); WBC 11.7 thou/uL (4.0-11.0)
[2021-07-17 13:38] LABS: BE 0.1 mmol/L (-2 to +3); PCO2 VENOUS 58.7 mmHg (41.0-51.0); PO2 VENOUS 100.3 mmHg (35.0-45.0)
[2021-07-18] VITALS (24 sets, daily range): BP systolic 97–143; BP diastolic 43–77
[2021-07-18 04:51] LABS: ABSOLUTE LYMPHOCYTES 0.2 thou/uL (0.8-5.3); ABSOLUTE MONOCYTES 0.3 thou/uL (0.0-1.2); ABSOLUTE NEUTROPHILS 8.5 thou/uL (1.6-8.1); BASOPHILS 0.1 %; HEMATOCRIT 21.3 % (37.0-47.0); HEMOGLOBIN 7.2 gm/dL (12.0-15.0); LYMPHOCYTES 1.9 %; MCH 30.1 pg (26.0-34.0); MCHC 33.7 g/dL (28.0-37.0); MCV 89.2 fL (80.0-100.0); MONOCYTES 3.2 %; MPV 8.4 fl. (7.2-11.1); NUCLEATED RBCS 0 /100WBC; PLATELET COUNT* 58 thou/uL (150-400); POLYS 94.8 %; RBC 2.39 mil/uL (4.20-5.00); RDW-CV 14.6 % (10.5-14.5)
[2021-07-18 05:11] LABS: ALBUMIN 2.3 g/dL (3.4-5.0); CALCIUM 7.5 mg/dL (8.5-10.1); POTASSIUM 4.1 mmol/L (3.5-5.1); TOTAL BILIRUBIN 0.4 mg/dL (<0.1-1.0); TOTAL PROTEIN 4.6 g/dL (6.4-8.2)
[2021-07-18 10:51] LABS: HEMOGLOBIN 6.9 gm/dL (12.0-15.0)
[2021-07-18 13:05] LABS: BE -4.7 mmol/L (-2 to +3); PCO2 VENOUS 43.1 mmHg (41.0-51.0); PO2 VENOUS 70.9 mmHg (35.0-45.0)
[2021-07-18 17:09] LABS: HEMATOCRIT 22.8 % (37.0-47.0); HEMOGLOBIN 7.7 gm/dL (12.0-15.0); MCH 30.2 pg (26.0-34.0); MCHC 33.7 g/dL (28.0-37.0); MCV 89.6 fL (80.0-100.0); MPV 8.9 fl. (7.2-11.1); NUCLEATED RBCS 0 /100WBC; PLATELET COUNT* 78 thou/uL (150-400); RBC 2.55 mil/uL (4.20-5.00); RDW-CV 14.5 % (10.5-14.5); WBC 12.8 thou/uL (4.0-11.0)
[2021-07-18 17:45] LABS: ABSOLUTE LYMPHOCYTES 0.1 thou/uL (0.8-5.3); ABSOLUTE MONOCYTES 0.6 thou/uL (0.0-1.2); HYPOCHROMASIA Occasional
[2021-07-18 17:46] LABS: PLATELET ESTIMATE DECREASED
[2021-07-19] VITALS (53 sets, daily range): BP systolic 94–158; BP diastolic 30–84
[2021-07-19 05:39] LABS: ABSOLUTE LYMPHOCYTES 0.2 thou/uL (0.8-5.3); ABSOLUTE MONOCYTES 0.3 thou/uL (0.0-1.2); ABSOLUTE NEUTROPHILS 11.8 thou/uL (1.6-8.1); BASOPHILS 0.4 %; HEMATOCRIT 22.9 % (37.0-47.0); HEMOGLOBIN 7.7 gm/dL (12.0-15.0); LYMPHOCYTES 1.7 %; MCH 29.9 pg (26.0-34.0); MCHC 33.7 g/dL (28.0-37.0); MCV 88.6 fL (80.0-100.0); MONOCYTES 2.7 %; MPV 8.5 fl. (7.2-11.1); NUCLEATED RBCS 0 /100WBC; PLATELET COUNT* 79 thou/uL (150-400); POLYS 95.2 %; RBC 2.58 mil/uL (4.20-5.00); RDW-CV 14.5 % (10.5-14.5); WBC 12.4 thou/uL (4.0-11.0)
[2021-07-19 06:11] LABS: ALBUMIN 2.6 g/dL (3.4-5.0); CALCIUM 7.7 mg/dL (8.5-10.1); POTASSIUM 4.4 mmol/L (3.5-5.1); TOTAL BILIRUBIN 0.5 mg/dL (<0.1-1.0); TOTAL PROTEIN 5.1 g/dL (6.4-8.2)
[2021-07-20] VITALS (11 sets, daily range): BP systolic 114–151; BP diastolic 47–75
[2021-07-20 04:11] LABS: NUCLEATED RBCS 0 /100WBC
[2021-07-20 04:46] LABS: POTASSIUM ND mmol/L (3.5-5.1)
[2021-07-20 04:48] LABS: SODIUM ND mmol/L (136-145)
[2021-07-20 04:49] LABS: CHLORIDE ND mmol/L (98-107)
[2021-07-20 04:50] LABS: ANION GAP ND mmol/L (7-16); CO2 ND mmol/L (21-32)
[2021-07-20 04:51] LABS: BUN ND mg/dL (7-18)
[2021-07-20 04:52] LABS: CREATININE ND mg/dL (0.6-1.3); GLUCOSE ND mg/dL (70-99)
[2021-07-20 04:53] LABS: CALCIUM ND mg/dL (8.5-10.1); SGOT ND U/L (15-37); TOTAL BILIRUBIN ND mg/dL (<0.1-1.0)
[2021-07-20 04:54] LABS: ALKALINE PHOSPHATASE ND U/L (46-116); MAGNESIUM ND mg/dL (1.8-2.4); PHOSPHORUS* ND mg/dL (2.5-4.9)
[2021-07-20 04:55] LABS: SGPT ND U/L (30-65); TOTAL PROTEIN ND g/dL (6.4-8.2)
[2021-07-20 04:56] LABS: ALBUMIN ND g/dL (3.4-5.0)
[2021-07-20 04:58] LABS: HEMOGLOBIN ND gm/dL (12.0-15.0); RBC ND mil/uL (4.20-5.00); WBC ND thou/uL (4.0-11.0)
[2021-07-20 04:59] LABS: HEMATOCRIT ND % (37.0-47.0); MCV ND fL (80.0-100.0)
[2021-07-20 05:00] LABS: MCH ND pg (26.0-34.0); MCHC ND g/dL (28.0-37.0); RDW-CV ND % (10.5-14.5)
[2021-07-20 05:01] LABS: MPV ND fl. (7.2-11.1); PLATELET COUNT* ND thou/uL (150-400)
[2021-07-20 05:02] LABS: POLYS ND %
[2021-07-20 05:03] LABS: BASOPHILS ND %; EOSINOPHILS ND %; LYMPHOCYTES ND %; MONOCYTES ND %
[2021-07-20 05:04] LABS: ABSOLUTE LYMPHOCYTES ND thou/uL (0.8-5.3); ABSOLUTE NEUTROPHILS ND thou/uL (1.6-8.1)
[2021-07-20 05:05] LABS: ABSOLUTE BASOPHILS ND thou/uL (0.0-0.2); ABSOLUTE EOSINOPHILS ND thou/uL (0.0-0.7); ABSOLUTE MONOCYTES ND thou/uL (0.0-1.2)
[2021-07-20 05:59] LABS: ABSOLUTE LYMPHOCYTES 0.2 thou/uL (0.8-5.3); ABSOLUTE MONOCYTES 0.3 thou/uL (0.0-1.2); ABSOLUTE NEUTROPHILS 12.1 thou/uL (1.6-8.1); BASOPHILS 0.2 %; HEMATOCRIT 23.1 % (37.0-47.0); HEMOGLOBIN 7.6 gm/dL (12.0-15.0); LYMPHOCYTES 1.5 %; MCH 29.7 pg (26.0-34.0); MCHC 33.1 g/dL (28.0-37.0); MCV 89.7 fL (80.0-100.0); MONOCYTES 2.5 %; MPV 8.5 fl. (7.2-11.1); NUCLEATED RBCS 0 /100WBC; PLATELET COUNT* 82 thou/uL (150-400); POLYS 95.8 %; RBC 2.58 mil/uL (4.20-5.00); RDW-CV 14.4 % (10.5-14.5); WBC 12.6 thou/uL (4.0-11.0)
[2021-07-20 06:10] LABS: ALBUMIN 2.6 g/dL (3.4-5.0); CALCIUM 7.8 mg/dL (8.5-10.1); PHOSPHORUS* 4.7 mg/dL (2.5-4.9); POTASSIUM 4.3 mmol/L (3.5-5.1); TOTAL BILIRUBIN 0.5 mg/dL (<0.1-1.0); TOTAL PROTEIN 5.2 g/dL (6.4-8.2)
[2021-07-20 06:12] LABS: CREATININE 2.9 mg/dL (0.6-1.3)
[2021-07-21] VITALS (69 sets, daily range): BP systolic 88–150; BP diastolic 30–73
[2021-07-21 06:15] LABS: ABSOLUTE LYMPHOCYTES 0.2 thou/uL (0.8-5.3); ABSOLUTE MONOCYTES 0.2 thou/uL (0.0-1.2); ABSOLUTE NEUTROPHILS 11.4 thou/uL (1.6-8.1); BASOPHILS 0.4 %; HEMATOCRIT 21.2 % (37.0-47.0); LYMPHOCYTES 1.3 %; MCV 90.9 fL (80.0-100.0); MONOCYTES 1.7 %; MPV 8.5 fl. (7.2-11.1); NUCLEATED RBCS 0 /100WBC; PLATELET COUNT* 77 thou/uL (150-400); POLYS 96.6 %; RBC 2.34 mil/uL (4.20-5.00); WBC 11.8 thou/uL (4.0-11.0)
[2021-07-21 06:28] LABS: ALBUMIN 2.9 g/dL (3.4-5.0); CALCIUM 7.9 mg/dL (8.5-10.1); CREATININE 2.9 mg/dL (0.6-1.3); MAGNESIUM 2.1 mg/dL (1.8-2.4); POTASSIUM 4.3 mmol/L (3.5-5.1); TOTAL BILIRUBIN 0.4 mg/dL (<0.1-1.0); TOTAL PROTEIN 5.2 g/dL (6.4-8.2)
[2021-07-22] VITALS (72 sets, daily range): BP systolic 77–144; BP diastolic 28–64
[2021-07-22 06:16] LABS: HEMATOCRIT 22.1 % (37.0-47.0); HEMOGLOBIN 7.1 gm/dL (12.0-15.0); MCH 29.6 pg (26.0-34.0); MCHC 32.2 g/dL (28.0-37.0); MPV 8.6 fl. (7.2-11.1); NUCLEATED RBCS 1 /100WBC; PLATELET COUNT* 87 thou/uL (150-400); WBC 18.9 thou/uL (4.0-11.0)
[2021-07-22 06:31] LABS: ALBUMIN 3.1 g/dL (3.4-5.0); CALCIUM 7.9 mg/dL (8.5-10.1); CREATININE 2.4 mg/dL (0.6-1.3); POTASSIUM 4.2 mmol/L (3.5-5.1); TOTAL BILIRUBIN 0.4 mg/dL (<0.1-1.0); TOTAL PROTEIN 5.3 g/dL (6.4-8.2)
[2021-07-22 07:01] LABS: ABSOLUTE NEUTROPHILS 18.5 thou/uL (1.6-8.1)
[2021-07-22 07:04] LABS: ABSOLUTE MONOCYTES 0.4 thou/uL (0.0-1.2)
[2021-07-22 07:06] LABS: PLATELET ESTIMATE DECREASED
[2021-07-22 07:08] LABS: HYPOCHROMASIA 2+
[2021-07-23] VITALS (16 sets, daily range): BP systolic 79–132; BP diastolic 27–60
[2021-07-23 07:15] LABS: HEMATOCRIT 21.8 % (37.0-47.0); MCH 29.8 pg (26.0-34.0); MCHC 31.8 g/dL (28.0-37.0); MPV 8.7 fl. (7.2-11.1); RBC 2.32 mil/uL (4.20-5.00); RDW-CV 15.6 % (10.5-14.5); WBC 12.5 thou/uL (4.0-11.0)
[2021-07-23 07:20] LABS: CALCIUM 8.2 mg/dL (8.5-10.1); CREATININE 2.3 mg/dL (0.6-1.3); HEMOGLOBIN 6.9 gm/dL (12.0-15.0); POTASSIUM 4.3 mmol/L (3.5-5.1)
[2021-07-23 07:23] LABS: BE -3.3 mmol/L (-2 to +3)
[2021-07-23 07:26] LABS: pH 7.095 (7.340-7.450)
[2021-07-23 07:27] LABS: PCO2 89.6 mmHg (35.0-45.0); PO2 34.9 mmHg (75.0-100.0)
[2021-07-23 07:30] LABS: ALBUMIN 3.2 g/dL (3.4-5.0); TOTAL BILIRUBIN 0.5 mg/dL (<0.1-1.0); TOTAL PROTEIN 5.4 g/dL (6.4-8.2)
[2021-07-23 07:57] LABS: BE -3.5 mmol/L (-2 to +3); PO2 67.5 mmHg (75.0-100.0)
[2021-07-23 08:02] LABS: PCO2 67.5 mmHg (35.0-45.0); pH 7.186 (7.340-7.450)
[2021-07-23 17:47] LABS: HEMATOCRIT 26.4 % (37.0-47.0); HEMOGLOBIN 8.6 gm/dL (12.0-15.0)
[2021-07-23 18:24] LABS: BE -8.6 mmol/L (-2 to +3)
[2021-07-23 18:27] LABS: PCO2 71.6 mmHg (35.0-45.0); PO2 153.4 mmHg (75.0-100.0); pH 7.094 (7.340-7.450)
[2021-07-23 21:08] LABS: BE -8.8 mmol/L (-2 to +3)
[2021-07-23 21:11] LABS: PO2 151.8 mmHg (75.0-100.0); pH 7.052 (7.340-7.450)
[2021-07-24] VITALS (82 sets, daily range): BP systolic 91–139; BP diastolic 30–77
[2021-07-24 06:18] LABS: HEMOGLOBIN 8.5 gm/dL (12.0-15.0); MCH 29.5 pg (26.0-34.0); MCHC 32.5 g/dL (28.0-37.0); MCV 90.7 fL (80.0-100.0); MPV 8.2 fl. (7.2-11.1); RBC 2.87 mil/uL (4.20-5.00); RDW-CV 18.1 % (10.5-14.5); WBC 14.3 thou/uL (4.0-11.0)
[2021-07-24 06:28] LABS: CALCIUM 8.5 mg/dL (8.5-10.1); CREATININE 3.2 mg/dL (0.6-1.3); POTASSIUM 4.3 mmol/L (3.5-5.1)
[2021-07-24 08:24] LABS: BE -2.1 mmol/L (-2 to +3); PO2 94.2 mmHg (75.0-100.0)
[2021-07-24 08:28] LABS: pH 7.257 (7.340-7.450)
[2021-07-24 08:29] LABS: PCO2 58.7 mmHg (35.0-45.0)
[2021-07-24 12:28] LABS: BE 1.1 mmol/L (-2 to +3); PO2 VENOUS 54.6 mmHg (35.0-45.0)
--- NOTE | 2021-07-24 15:57 | EKG ---
[place] [address] ELECTROCARDIOGRAM REPORT Name: JOSEPHKALEE FREED Room: [address] ADM IN ..#: [id number] Admission: 07/04/21 Attend Phys: Davis Chung, Discharge: Date of : 39 Date of Service: 07/23/21 0714 Report #: [id number] THIS REPORT FOR: //name// [facility] Test Date: 2021-07-23 Test Time: 07:14:15 Pat Name: KALEE MALDONADO Department: Room: [address] Gender: F Hostess Party Sales Representative: DT : 1935 Requested By: Davis Chung Order Number: [id number] Reading MD: Nas Montgomery Measurements Intervals [place] Rate: 87 P: 0 [place]: 122 QRS: -44 QRSD: 114 T: 118 QT: 389 QTc: 468 Interpretive Statements Atrial fibrillation with a rare paced beat No further rhythm analysis attempted due to paced rhythm Borderline IVCD with LAD Abnormal R-wave progression, late transition Repol abnrm suggests ischemia, lateral leads Baseline wander in lead(s) V1 Compared to ECG 07/04/2021 18:45:4 Atrial fibrillation as noted Early repolarization now present Electronically Signed On 07-24-2021 15:57:22 [employer] SUBSYSTEM EQUIPMENT OPERATOR by Nas Montgomery [email or web address] <ELECTRONICALLY SIGNED> By: Nas Montgomery MD, [facility] 07/24/21 1557 3 3 Nas Montgomery MD, [facility] /EPI
[2021-07-24 17:05] LABS: BE -2.3 mmol/L (-2 to +3); PO2 VENOUS 89.9 mmHg (35.0-45.0)
[2021-07-25] VITALS (59 sets, daily range): BP systolic 91–153; BP diastolic 33–107
[2021-07-25 10:50] LABS: PCO2 VENOUS 64.8 mmHg (41.0-51.0); PO2 VENOUS 118.7 mmHg (35.0-45.0)
[2021-07-25 15:09] LABS: HEMOGLOBIN 8.3 gm/dL (12.0-15.0); MCH 29.8 pg (26.0-34.0); NUCLEATED RBCS 0 /100WBC; RBC 2.79 mil/uL (4.20-5.00)
[2021-07-25 15:11] LABS: HEMATOCRIT 25.2 % (37.0-47.0); MCHC 33.1 g/dL (28.0-37.0); MCV 90.2 fL (80.0-100.0); MPV 7.8 fl. (7.2-11.1); RDW-CV 18.3 % (10.5-14.5); WBC 8.3 thou/uL (4.0-11.0)
[2021-07-25 15:16] LABS: PLATELET COUNT* 32 thou/uL (150-400)
[2021-07-25 15:43] LABS: CALCIUM 8.2 mg/dL (8.5-10.1); CREATININE 2.6 mg/dL (0.6-1.3); MAGNESIUM 2.2 mg/dL (1.8-2.4); POTASSIUM 4.6 mmol/L (3.5-5.1)
[2021-07-25 16:01] LABS: ABSOLUTE MONOCYTES 0.2 thou/uL (0.0-1.2); ABSOLUTE NEUTROPHILS 8.1 thou/uL (1.6-8.1)
[2021-07-25 16:02] LABS: ANISOCYTOSIS 1+; HYPOCHROMASIA 1+; PLATELET ESTIMATE DECREASED
[2021-07-26] VITALS (56 sets, daily range): BP systolic 98–141; BP diastolic 38–68
[2021-07-26 04:19] LABS: ABSOLUTE LYMPHOCYTES 0.1 thou/uL (0.8-5.3); ABSOLUTE MONOCYTES 0.2 thou/uL (0.0-1.2); ABSOLUTE NEUTROPHILS 11.4 thou/uL (1.6-8.1); BASOPHILS 0.3 %; HEMATOCRIT 26.8 % (37.0-47.0); HEMOGLOBIN 8.5 gm/dL (12.0-15.0); LYMPHOCYTES 0.8 %; MCH 29.2 pg (26.0-34.0); MCHC 31.8 g/dL (28.0-37.0); MONOCYTES 1.5 %; MPV 8.1 fl. (7.2-11.1); NUCLEATED RBCS 0 /100WBC; POLYS 97.4 %; RBC 2.91 mil/uL (4.20-5.00); RDW-CV 18.2 % (10.5-14.5); WBC 11.7 thou/uL (4.0-11.0)
[2021-07-26 04:32] LABS: CALCIUM 8.4 mg/dL (8.5-10.1); CREATININE 2.9 mg/dL (0.6-1.3); POTASSIUM 4.9 mmol/L (3.5-5.1); TOTAL BILIRUBIN 0.4 mg/dL (<0.1-1.0); TOTAL PROTEIN 5.4 g/dL (6.4-8.2)
[2021-07-26 04:42] LABS: PLATELET COUNT* 34 thou/uL (150-400)
[2021-07-26 13:12] LABS: BE 1.5 mmol/L (-2 to +3)
== END 2021-07-26 17:44 | DRG 177 ==
LOC: M.ERS 18:17 → M.TBA-ER 18:49 → M.ICU 07-05 23:25 → M.2W 07-13 21:06 → M.ICU 07-14 11:29 → M.ORTHSURG 07-22 19:03 → M.ICU 07-23 18:04
PROVIDERS: Family Medicine; Internal Medicine; Internal Medicine Critical Care Medicine; Internal Medicine Nephrology; Pediatrics; Personal Emergency Response Attendant; ADMIT Internal Medicine; ATTEND Internal Medicine
DX: U07.1 COVID-19 (principal); J12.82 Pneumonia due to coronavirus disease 2019; N17.0 Acute kidney failure with tubular necrosis; J80 Acute respiratory distress syndrome; G93.41 Metabolic encephalopathy; K92.1 Melena; E87.1 Hypo-osmolality and hyponatremia; J98.11 Atelectasis; I10 Essential (primary) hypertension; E11.65 Type 2 diabetes mellitus with hyperglycemia; D75.82 Heparin induced thrombocytopenia (HIT); D64.9 Anemia, unspecified; L89.152 Pressure ulcer of sacral region, stage 2; I25.10 Atherosclerotic heart disease of native coronary artery without angina pectoris; B37.9 Candidiasis, unspecified; R53.81 Other malaise; E83.52 Hypercalcemia; Z95.0 Presence of cardiac pacemaker; Z88.2 Allergy status to sulfonamides; Z88.8 Allergy status to other drugs, medicaments and biological substances; Z95.1 Presence of aortocoronary bypass graft; Z95.2 Presence of prosthetic heart valve; Z82.49 Family history of ischemic heart disease and other diseases of the circulatory system; Z79.82 Long term (current) use of aspirin; Z79.899 Other long term (current) drug therapy